=== PATIENT | female | born 2000 | race African-American/Black ===

== ENCOUNTER → 2020-05-19 | Emergency (ER) | payer OTHER ==
[2020-05-20 15:19] LABS: SARS-CoV-2 MS2 Positive; SARS-CoV-2 N Gene Negative; SARS-CoV-2 S Gene Negative; SARS-CoV-2 orf1ab Negative
== END ==
LOC: BURERS 16:12
DX: R51 Headache (principal); Z20.828 Contact with and (suspected) exposure to other viral communicable diseases
CPT/HCPCS: 87635; 99284; U0003